=== PATIENT | male | born 1970 | race Caucasian/White ===

== ENCOUNTER → 2023-06-07 11:25 | Outpatient (REF) | payer BC, SELFPAY | LOC: HWRAD 11:25 | PROVIDERS: ATTENDING PHYSICIAN Internal Medicine Cardiovascular Disease; FAMILY PHYSICIAN Student in an Organized Health Care Education/Training Program | DX: I71.20 Thoracic aortic aneurysm, without rupture, unspecified (principal) | CPT/HCPCS: 71275; 74175; Q9967 ==

== ENCOUNTER → 2023-07-30 16:56 | Outpatient (REF) | payer BC, SELFPAY | LOC: CLAB 16:56 | PROVIDERS: ATTENDING PHYSICIAN Orthopaedic Surgery Hand Surgery; FAMILY PHYSICIAN Family Medicine | DX: M67.431 Ganglion, right wrist (principal) | CPT/HCPCS: 88304 ==

== ENCOUNTER 2023-08-05 16:27 | Emergency (ER) | payer BC, SELFPAY ==
[2023-08-05 16:28] VITALS: BP 145/87
--- NOTE | 2023-08-05 16:44 | ED.GENMED ---
History of Present Illness
General
Chief Complaint: Ear Problem
Source: patient
Time Seen by Provider: 08/05/23 16:38
Travel History
Have you had any contact with someone who has COVID-19?: No
Do you have any symptoms of coronavirus? Fever > 100 degrees, chills, cough, shortness of breath, sore throat, loss of taste or smell, muscle aches, or headache?: No
History of Present Illness
History of Present Illness:
53-year-old male with no significant past medical history presenting the emergency department for evaluation after he believes he got the tip of the Q-tip stuck in his left ear. Patient has no other concerns. Denies pain or auditory changes.
Past History
Past History
ED Past Medical History: Other (Kidney stones)
ED Past Surgical History: Orthopedic (Hip replacement)
Social History
Tobacco: Non-smoker
Alcohol: None
Drug: None
Personal:
Living: with family
Employment: Employed
Review of Systems
Review of Systems
All Other Systems: ROS reviewed and negative except as documented in HPI and ROS
Phy Exam
Physical Exam
Physical Exam:
GENERAL: Alert , in no apparent distress
EYE: conjunctiva clear
Head: Normocephalic atraumatic
NECK: Supple,
ENT: mmm. No foreign bodies appreciated in either auditory canal. TMs intact and without any signs of perforation. No effusions
LUNGS: no acute respiratory distress
NEUROLOGICAL: Alert and oriented
SKIN: Warm and dry, skin intact.
MUSCULOSKELETAL: well perfused.
PSYCH: Normal and appropriate interaction.
Scores
Heart Failure Risk
Heart Failure Risk Score: Not Applicable
Heart Score for Chest Pain Patients
STEMI patient?: Not applicable
Withdrawal Assessment of Alcohol
Withdrawal Assessment Completed?: Not applicable
Course
Vital Signs
Initial and Last Documented VS:
Initial Vital Signs
Temp Pulse Resp BP Pulse Ox
98.7 F 60 18 145/87 94
08/05/23 16:28 08/05/23 16:28 08/05/23 16:28 08/05/23 16:28 08/05/23 16:28
Last Documented Vital Signs
Temp Pulse Resp BP Pulse Ox
98.7 F 56 18 119/69 94
08/05/23 16:28 08/05/23 16:55 08/05/23 16:28 08/05/23 16:55 08/05/23 16:28
MDM/Problems Addressed
MDM/Problems Addressed:
53-year-old male presenting emergency department for evaluation of suspected foreign body in his left ear. On exam there is no foreign body visualized in either the left or right auditory canal. Patient is otherwise stable for discharge home.
*Pulse Oximetry
Patient hypoxic: no
*Critical Care Note
Total Time (30-74mins, 75-104mins- exclusive of procedures): Not Applicable
ED Attending Note
-
Portions of this chart may have been created with voice recognition software.� Occasional wrong word or��sound alike� substitutions may have occurred due to the inherent limitations of voice recognition software.
Discharge Plan
Departure
Patient Disposition: Home (Routine Discharge)
Date of Disposition: 08/05/23
Time of Disposition: 16:44
Patient with high blood pressure during this ER visit?: No
Discharge Problem:
History of foreign body in auditory canal
Instructions: Foreign Body in Ear (DC)
Prescriptions:
No Action
fexofenadine [Iram] 180 MG tablet
180 mg PO DAILY
esomeprazole magnesium [Nexium] 40 MG capsule,delayed release(DR/EC)
40 mg PO DAILY
minerals [Multimineral Plus] 1 TAB tablet
1 tab PO DAILY
hydrocodone-acetaminophen 1 EACH tablet
1 - 2 tab PO Q4HPRN PRN (Reason: pain) Qty: 15 0RF
ketorolac 10 mg tablet
10 mg PO QID PRN (Reason: pain) 5 Days Qty: 20 0RF
ondansetron 8 mg tablet,disintegrating
8 mg PO TID PRN (Reason: nausea and vomiting) Qty: 20 0RF
tramadol 100 mg tablet
100 mg PO Q6H PRN (Reason: pain) Qty: 20 0RF
tamsulosin [Flomax] 0.4 mg Capsule
0.4 mg PO DAILY Qty: 10 0RF
Interventions
Interventions:
*Risk Screen - Suicide Last Done: 08/05/23 16:49
*General Assessment Last Done: 08/05/23 16:49
*Neglect/Abuse Screening Last Done: 08/05/23 16:49
*Nursing Disposition Last Done: 08/05/23 16:55
Discharge Date and Time
Discharge Date/Time: 08/05/23 16:56
Print Language: [id number]
[2023-08-05 16:55] VITALS: BP 119/69
== END 2023-08-05 16:56 | disposition home or self-care (01) ==
LOC: EMR 16:27
PROVIDERS: EMERGENCY PHYSICIAN Emergency Medicine; FAMILY PHYSICIAN Family Medicine
DX: T16.2XXA Foreign body in left ear, initial encounter (principal); W44.8XXA Other foreign body entering into or through a natural orifice, initial encounter
CPT/HCPCS: 99281

== ENCOUNTER → 2024-12-16 16:48 | Outpatient (REF) | payer BC, SELFPAY | LOC: RAD 16:48 | PROVIDERS: ATTENDING PHYSICIAN Internal Medicine Cardiovascular Disease; FAMILY PHYSICIAN Physician Assistant | DX: I71.20 Thoracic aortic aneurysm, without rupture, unspecified (principal) | CPT/HCPCS: 71275; Q9967 ==